=== PATIENT | female | born 1960 | race African-American/Black ===

== ENCOUNTER 2017-03-09 03:52 | Emergency (ER) | payer OTHER ==
[~2017-03-09] VITALS: Ht 165.1 cm; Wt 64.0 kg
[2017-03-09] MEDS ORDERED: LORAZEPAM 2MG/ML CPJ IV ONE (04:30)
[2017-03-09 04:38] LABS: BASOPHILS % 0.8 % (0.0-2.0); EOSINOPHILS % 2.9 % (0.0-5.0); LYMPHOCYTES % 31.3 % (20.0-50.0); MEAN CORPUSCULAR HEMOGLOBIN 28.6 pg (28.0-32.0); MEAN CORPUSCULAR HGB CONC 33.3 g/dL (31.0-37.0); MEAN CORPUSCULAR VOLUME 85.7 fL (81.0-99.0); MEAN PLATELET VOLUME 8.6 fl (7.4-10.4); MONOCYTES % 11.6 % (2.0-8.0); NEUTROPHILS % 53.4 % (40.0-76.0); PLATELET 123 x1000/uL (130-400); RED BLOOD CELL COUNT 3.85 mill/uL (4.2-5.4); RED CELL DISTRIBUTION WIDTH 13.6 % (11.6-14.6); WHITE BLOOD COUNT 3.3 x1000/uL (4.5-11.0)
[2017-03-09 04:46] LABS: PARTIAL THROMBOPLASTIN TIME 27.1 sec (24.0-34.0); PROTHROMBIN TIME 10.5 sec
[2017-03-09 04:54] LABS: ALANINE AMINOTRANSFERASE 26 IU/L (13-61); ALBUMIN 3.3 g/dL (3.4-5.0); ANION GAP 9; CALCIUM 8.7 mg/dL (8.5-10.1); CARBON DIOXIDE 29 mEq/L (21-32); CHLORIDE 109 mEq/L (98-107); INDEX HEMOLYSI 1 (1-3); INDEX ICTERIC 1 (1-4); INDEX LIPEMIC 1 (1-3); LIPASE 158 IU/L (73-393); TROPONIN I < 0.02 ng/mL (0.00-0.04); UREA NITROGEN BLOOD 15 mg/dL (7-21); eGFR > 60 mL/min (>60)
[2017-03-09 06:48] VITALS: BP 95/56
== END 2017-03-09 07:52 | disposition home or self-care (01) ==
LOC: ER 03:52
DX: R07.2 Precordial pain (principal); G43.909 Migraine, unspecified, not intractable, without status migrainosus; I25.10 Atherosclerotic heart disease of native coronary artery without angina pectoris
CPT/HCPCS: 36415; 71010; 80053; 83690; 84484; 85025; 85610; 85730; 93005; 96374; 99285; J2060; Z7610; 80048